=== PATIENT | male | born 1950 | race African-American/Black ===

== ENCOUNTER → 2021-02-01 14:17 | Outpatient (CLI) | payer OTHER, SELFPAY ==
[2021-02-01] MEDS: COVID-19 VACC, Ad26(JANSSEN)/PF 0.5 ML IM (14:26)
== END ==
PROVIDERS: Visit Provider Internal Medicine
DX: Z23 Encounter for immunization (principal)
CPT/HCPCS: 0031A; 91303

== ENCOUNTER → 2021-03-01 14:11 | Outpatient (CLI) | payer OTHER, SELFPAY ==
[2021-03-01] MEDS: COVID-19 VACC #2, MRNA(MOD) 100 MCG/0.5 ML VIAL IM (14:22)
== END ==
PROVIDERS: Visit Provider Internal Medicine
DX: Z23 Encounter for immunization (principal)
CPT/HCPCS: 0012A; 91301